=== PATIENT | female | born 2000 | race Caucasian/White ===

== ENCOUNTER 2025-07-19 08:03 | Outpatient (REF) | payer MEDICAID, SELFPAY ==
--- NOTE | ~2025-07-19 | US_ITS ---
EXAMINATION: US HEAD NECK SOFT TISSUE HISTORY: LYMPHADENITIS OF FACE AND NECK COMPARISON: There are no prior studies available for comparison. FINDINGS: Sonographic examination of the neck was performed. Multiple normal-appearing lymph nodes are identified as described below: Right level CHELSI lymph node measuring 1.9 x 0.3 x 1.1 cm. Right level II lymph node measuring 1.7 x 0.5 x 1.5 cm. Right level II lymph node measuring 1.1 x 0.4 x 1.0 cm. Right level II lymph node measuring 2.0 x 0.4 x 2.3 cm. Left level VB lymph node measuring 1.5 x 0.5 x 0.9 cm. Left level VB lymph node measuring 1.3 x 0.4 x 0.9 cm. Left level II lymph node measuring 1.8 x 0.6 x 1.7 cm. US/US soft tiss head and/or neck IMPRESSION: Multiple normal-appearing lymph nodes are identified in the neck bilaterally. Electronically signed by: Trip Norwood MD 07/20/2025 07:17 AM [id number]
== END 2025-07-19 08:04 | disposition home or self-care (01) ==
LOC: HO.UMASIMG 08:03
PROVIDERS: Visit Provider Pediatrics
DX: L04.0 Acute lymphadenitis of face, head and neck (principal); R63.4 Abnormal weight loss; R11.0 Nausea
CPT/HCPCS: 76536

== ENCOUNTER → 2025-07-19 14:08 | Outpatient (BNV) | payer MEDICAID, SELFPAY | PROVIDERS: Visit Provider Radiology Diagnostic Radiology | DX: L04.0 Acute lymphadenitis of face, head and neck (principal) | CPT/HCPCS: 76536 ==